=== PATIENT | male | born 1950 | race Caucasian/White ===

== ENCOUNTER 2016-05-31 16:49 | Emergency (ER) | payer MEDICARE ==
[~2016-05-31] VITALS: Ht 180.3 cm; Wt 141.0 kg
[~2016-05-31 16:49] MED LIST: LORT5TAB PO; NAPR550 PO
[2016-05-31 16:51] VITALS: BP 169/96; PULSE 70; RESP 16; TEMP 99; O2SAT 97
[2016-05-31] MEDS ORDERED: JANU50TA4 PO (17:14)
[2016-05-31] MEDS ORDERED: SENN1TAB17 PO (17:14)
[2016-05-31] MEDS ORDERED: LISI10TA3 PO (17:14)
[2016-05-31] MEDS ORDERED: ASPI-146 PO (17:14)
[2016-05-31] MEDS ORDERED: METF-382 PO (17:14)
[2016-05-31] MEDS ORDERED: OXYC1CAP PO (17:14)
[2016-05-31] MEDS ORDERED: OXYC-404 PO (17:14)
--- NOTE | 2016-05-31 17:14 | PD ---
HPI Chief Complaint: Pain: Acute or Chronic Time Seen by Provider: 17:03 Travel History International Travel<30 days: No Contact w/Intl Traveler<30days: No Traveled to known affect area: No History of Present Illness HPI 65-year-old male came to the emergency room with history of right leg swelling and redness that was noticed by the home nurse today who recommended that he should go to the emergency room to be checked in. Patient had a knee replacement surgery 1 week ago. This was done at [facility] in [place]. Patient says that he has been doing well up until today. No history of fever or chills. Vital signs were stable in the emergency room. Patient is a diabetic. [facility] Past Medical History Narrative Medical List of his past medical history as reviewed from the nursing note. Hx Anticoagulant Therapy: Yes (325 MG. ASA) Cardiovascular Problems: Yes (HTN) Diabetes: Yes Respiratory: Yes (CPAP) Social History Alcohol Use: No Tobacco Use: No Substance Use: No Allergies-Medications (Allergen,Severity, Reaction): Coded Allergies: No Known Allergies (Verified , 05/31/16) Comments No known drug allergies. Reported Meds & Prescriptions Reported Meds & Active Scripts Active Reported Senokot S (Sennosides-Docusate Sodium) 8.6-50 Mg Tab 1 Tab PO HS Oxycodone ER (Oxycodone HCl) 10 Mg Tab 10 Mg PO Q12HR Oxycodone (Oxycodone HCl) 5 Mg Cap 5 Mg PO Q4H PRN Ecotrin Regular Strength (Aspirin) 325 Mg Tabdr 325 Mg PO BID Janumet (Sitagliptin-Metformin) 50-500 Mg Tab 1 Tab PO HS Metformin ER (Metformin HCl) 1,000 Mg Doug 1,000 Mg PO BID With evening meal Lisinopril 10 Mg Tab 10 Mg PO DAILY Narrative Medication List of his home medications reviewed from the nursing note. Review of Systems Except as stated in HPI: all other systems reviewed are Neg Physical Exam Narrative GENERAL: Awake, alert, obese, no obvious distress SKIN: Warm and dry. Right knee has the surgical incision with samra. Wound well approximated with no discharge. Surrounding skin is erythematous, warm to touch and minimally tender. Significant ecchymosis proximal to the surgical wound. Distal part of the leg is swollen but no erythema or warmth. HEAD: Atraumatic. Normocephalic. EYES: Pupils equal and round. No scleral icterus. No injection or drainage. ENT: No nasal bleeding or discharge. Mucous membranes pink and moist. NECK: Trachea midline. No JVD. CARDIOVASCULAR: Regular rate and rhythm. No murmur appreciated. RESPIRATORY: No accessory muscle use. Clear to auscultation. Breath sounds equal bilaterally. GASTROINTESTINAL: Abdomen soft, non-tender, nondistended. Hepatic and splenic margins not palpable. MUSCULOSKELETAL: No obvious deformities. No clubbing. No cyanosis. No edema. See the above description for the right knee and leg. NEUROLOGICAL: Awake and alert. No obvious cranial nerve deficits. Motor grossly within normal limits. Normal speech. PSYCHIATRIC: Appropriate mood and affect; insight and judgment normal. Data Data Last Documented VS Vital Signs Date Time Temp Pulse Resp B/P Pulse Ox O2 Delivery O2 Flow Rate FiO2 05/31/16 18:55 60 18 162/81 98 Room Air 05/31/16 16:51 99.0 Orders Basic Metabolic Panel (Bmp) (05/31/16 17:24) Complete Blood Count With Diff (05/31/16 17:24) Blood Culture (05/31/16 17:24) C-Reactive Protein (Crp) (05/31/16 17:24) Knee, Complete (4vws) (05/31/16 ) Us Leg Venous Doppler (05/31/16 ) Labs Laboratory Tests Test 05/31/16 17:45 White Blood Count 10.5 TH/MM3 Red Blood Count 4.00 MIL/MM3 Hemoglobin 12.5 GM/DL Hematocrit 36.9 % Mean Corpuscular Volume 92.2 FL Mean Corpuscular Hemoglobin 31.2 PG Mean Corpuscular Hemoglobin 33.8 % Concent Red Cell Distribution Width 12.7 % Platelet Count 314 TH/MM3 Mean Platelet Volume 7.7 FL Neutrophils (%) (Auto) 66.3 % Lymphocytes (%) (Auto) 19.0 % Monocytes (%) (Auto) 9.3 % Eosinophils (%) (Auto) 4.7 % Basophils (%) (Auto) 0.7 % Neutrophils # (Auto) 6.9 TH/MM3 Lymphocytes # (Auto) 2.0 TH/MM3 Monocytes # (Auto) 1.0 TH/MM3 Eosinophils # (Auto) 0.5 TH/MM3 Basophils # (Auto) 0.1 TH/MM3 CBC Comment DIFF FINAL Differential Comment Sodium Level 138 MEQ/L Potassium Level 4.2 MEQ/L Chloride Level 100 MEQ/L Carbon Dioxide Level 28.6 MEQ/L Anion Gap 9 MEQ/L Blood Urea Nitrogen 27 MG/DL Creatinine 0.77 MG/DL Estimat Glomerular Filtration 101 ML/MIN Rate Random Glucose 122 MG/DL Calcium Level 9.2 MG/DL C-Reactive Protein 3.60 MG/DL MDM Medical Decision Making Medical Screen Exam Complete: Yes Emergency Medical Condition: Yes Medical Record Reviewed: Yes Differential Diagnosis Cellulitis, postsurgical wound infection, DVT Narrative Course 9:11 PM blood test results came back and CRP was elevated. Ultrasound did not show any DVT but there was a popliteal cyst noticed. Given the clinical picture with elevated CRP there was a possibility of cellulitis/wound infection. I wanted to discuss the case with patient's surgeon Dr. Alvarez and a call was being placed. However I was told by the nurse that patient was getting extremely agitated at this point. I went to speak with the patient and let him know about the plan. He did not want to listen to the possibility of the infection and just wanted to go home. I tried to explain to him regarding the complication in case it was a wound infection especially given the fact that he was a diabetic. I'm not sure how much of the conversation was actually comprehended by the patient given his state of anger. However, he was in full capacity to make decisions for himself. He wanted to leave AMA and the consequences of infection was explained by me me and reiterated by the nurse as she had him sign the AMA paperwork. Phone call to Dr. Alvarez was aborted at this point. Procedures EKG Prior to Arrival: No Diagnosis Primary Impression: Postoperative infection Qualified Code: T81.4XXA - Postoperative infection, initial encounter Additional Impression: Cellulitis Qualified Code: L03.115 - Cellulitis of right lower extremity Disposition: 07 AGAINST MEDICAL ADVICE Condition: Serious Faith Dumont MD May 31, 2016 17:14
--- NOTE | 2016-05-31 17:57 | RADHPO ---
EXAM DATE/TIME: 05/31/2016 17:31 [facility] COMPARISON: No previous studies available for comparison. INDICATIONS : Right knee discomfort after surgery one week ago MEDICAL HISTORY : None. SURGICAL HISTORY : Total knee replacement, right. ENCOUNTER: Initial ACUITY: 1 week PAIN SCORE: 2/10 LOCATION: Right entire knee FINDINGS: A right total knee arthroplasty has been performed. The prosthesis appears to be in good position. Th ere is no acute fracture or dislocation. Suprapatellar knee joint effusion is noted. CONCLUSION: 1. Status post right total knee arthroplasty with prosthesis in good position. 2. Moderate-sized suprapatellar knee joint effusion. Cristino Whitten MD on May 31, 2016 at 17:51 Board Certified Radiologist. This report was verified electronically.
[2016-05-31 18:13] LABS: POTASSIUM 4.2 MEQ/L (3.5-5.1)
[2016-05-31 18:16] LABS: BICARBONATE 28.6 MEQ/L (21.0-32.0)
[2016-05-31 18:35] LABS: AUTOMATED NEUTROPHIL # 6.9 TH/MM3 (1.8-7.7); BASOPHIL # 0.1 TH/MM3 (0-0.2); BASOPHIL % 0.7 % (0.0-2.0); EOSINOPHIL # 0.5 TH/MM3 (0-0.4); EOSINOPHIL % 4.7 % (0.0-4.0); HEMATOCRIT 36.9 % (39.0-51.0); MEAN CELL VOLUME 92.2 FL (80.0-100.0); MEAN CORPUSCULAR HEMOGLOBIN 31.2 PG (27.0-34.0); MEAN CORPUSCULAR HGB CONC 33.8 % (32.0-36.0); MONO % 9.3 % (0.0-8.0); NEUT % 66.3 % (16.0-70.0); PLATELET COUNT 314 TH/MM3 (150-450); RED CELL DISTRIBUTION WIDTH 12.7 % (11.6-17.2); WHITE BLOOD COUNT 10.5 TH/MM3 (4.0-11.0)
[2016-05-31 18:36] LABS: HEMO FLAGS DIFF FINAL
[2016-05-31 18:55] VITALS: BP 162/81; PULSE 60; RESP 18; O2SAT 98
--- NOTE | 2016-05-31 20:17 | RADHPO ---
EXAM DATE/TIME: 05/31/2016 19:22 [facility] COMPARISON: No previous studies available for comparison. INDICATIONS : Right leg swelling. MEDICAL HISTORY : Hypertension. Diabetes. Sleep apnea. Anticoagulant therapy. SURGICAL HISTORY : Total knee replacement, right. ENCOUNTER: Initial ACUITY: 1 day PAIN SCORE: 5/10 LOCATION: Right leg. TECHNIQUE: Venous ultrasound of the leg was performed from the inguinal ligament to the proximal calf. Real-yenny e, color Doppler and spectral tracing, compression and augmentation techniques were used. FINDINGS: There is normal compressibility of the deep venous system from the inguinal region to the proximal ca lf. No echogenic clot is seen in the lumen of the common femoral, femoral, popliteal, and posterior tibial veins. There is a normal response of the venous system to proximal and distal augmentation an d respiration. Hypoechoic area in the popliteal fossa measures 8.0 x 2.7 x 1.9 cm. CONCLUSION: 1. No deep venous thrombosis in the right leg. 2. Complex structure in the popliteal fossa likely related to a popliteal cyst. Loc Jefferson MD on May 31, 2016 at 20:14 Board Certified Radiologist. This report was verified electronically.
== END 2016-05-31 20:51 | disposition left against medical advice (07) ==
LOC: PHED 16:49
DX: T81.4XXA Infection following a procedure, initial encounter (principal); L03.115 Cellulitis of right lower limb
CPT/HCPCS: 73564; 80048; 85025; 86140; 87040; 93971